=== PATIENT | male | born 1990 ===

== ENCOUNTER 2018-11-20 04:53 | Inpatient (IN) | payer OTHER ==
--- NOTE | 2018-11-20 05:11 | C.PDOC ---
History Of Present Illness As per , pt went to the bathroom and she heard him fall. Found him shaking, unresponsive. Pt does not remember the event. Denies cp, palpitations, f/c/n/v. Ambulating without any difficulty. No incontinence.States that he felt some pain in his leg prior to the event. Has happened before. on 2-3 occasions Time Seen by Provider: 11/20/18 05:10 Chief Complaint (Nursing): Medical Clearance History Per: Family History/Exam Limitations: no limitations Onset/Duration Of Symptoms: Hrs Current Symptoms Are (Timing): Better Severity: Moderate Pain Scale Rating Of: 4 Reports Recently: Treated By A Physician Recent travel outside of the [place]: No Additional History Per: Family Past Medical History Reviewed: Historical Data, Nursing Documentation, Vital Signs Vital Signs: Last Vital Signs Temp 98.3 F 11/20/18 05:03 Pulse 72 11/20/18 05:03 Resp 20 11/20/18 05:03 BP 110/78 11/20/18 05:03 Pulse Ox 99 11/20/18 05:03 Primary Care Provider: Non [facility] Provider, Family History: States: No Known Family Hx - Social History Hx Alcohol Use: Yes Hx Substance Use: No Review Of Systems Constitutional: Negative for: Fever, Chills Eyes: Negative for: Vision Change ENT: Negative for: Throat Pain Cardiovascular: Negative for: Chest Pain Respiratory: Negative for: Shortness of Breath Gastrointestinal: Negative for: Abdominal Pain Genitourinary: Negative for: Dysuria Musculoskeletal: Negative for: Back Pain Skin: Negative for: Rash Neurological: Positive for: Weakness, Dizziness Psych: Negative for: Anxiety Physical Exam - Physical Exam Appears: Non-toxic, No Acute Distress Skin: Warm, Dry Head: Normacephalic Eye(s): bilateral: Normal Inspection, PERRL, EOMI Oral Mucosa: Moist Neck: Supple Chest: Symmetrical Cardiovascular: Rhythm Regular Respiratory: No Rales, No Rhonchi, No Wheezing Gastrointestinal/Abdominal: Soft, No Tenderness, No Distention Back: No CVA Tenderness Extremity: No Tenderness Extremity: Bilateral: Atraumatic, Normal Color And Temperature, Normal ROM Pulses: Left Dorsalis Pedis: Normal, Right Dorsalis Pedis: Normal Neurological/Psych: Oriented x3, Normal Speech, Normal Cognition Gait: Steady ED Course And Treatment - Laboratory Results Result Diagrams: 11/20/18 05:43 11/20/18 05:43 ECG: Interpreted By Me, Viewed By Me ECG Rhythm: Sinus Rhythm (65), 1st Degree HB, Nonspecific Changes O2 Sat by Pulse Oximetry: 99 Pulse Ox Interpretation: Normal - Radiology CXR: Interpreted by Me, Viewed By Me CXR Interpretation: No: Infiltrates, Fracture, Pnemothorax Disposition Counseled Patient/Family Regarding: Studies Performed, Diagnosis - Disposition Disposition Time: 05:11 Condition: FAIR Forms: [email or web address] (Faroese) - Clinical Impression Clinical Impression: Medical assessment, New onset seizure Physician Patient Turnover Patient Signed Over To: Mine Buenrostro Handoff Comments: pending labs, ct re-eval and dispostion
[2018-11-20] MEDS ORDERED: Sodium Chloride 0.9% 1,000 ML IV ONE (05:24)
[2018-11-20 05:49] LABS: BASO % 0.3 % (0.0-2.0); EOS # 0.2 K/uL (0.0-0.7); EOS % 3.2 % (0.0-4.0); HEMOGLOBIN 15.2 g/dL (12.0-18.0); LYMPH # 1.5 K/uL (1.0-4.3); LYMPH % 20.5 % (20.0-40.0); MEAN CELL VOLUME 85.5 fL (80.0-94.0); MEAN CORPUSCULAR HEMOGLOBIN 28.7 pg (27.0-31.0); MEAN CORPUSCULAR HGB CONC 33.6 g/dL (33.0-37.0); MEAN PLATELET VOLUME 8.8 fL (7.2-11.7); MONO # 0.5 K/uL (0.0-0.8); MONO % 7.3 % (0.0-10.0); NEUT % 68.7 % (50.0-75.0); RBC 5.31 Mil/uL (4.40-5.90); RED CELL DISTRIBUTION WIDTH 13.6 % (11.5-14.5); WHITE BLOOD COUNT 7.3 K/uL (4.8-10.8)
[2018-11-20 05:54] LABS: GRANULAR CAST 11 /lpf (0-1); URINE BILIRUBIN NEGATIVE (NEGATIVE); URINE BLOOD NEGATIVE (NEGATIVE); URINE CLARITY Clear (Clear); URINE COLOR Yellow (YELLOW); URINE GLUCOSE (UA) NORMAL (Normal); URINE LEUKOCYTE ESTERASE NEG Leu/uL (Negative); URINE PROTEIN 2+ mg/dL (NEGATIVE); URINE UROBILINOGEN NORMAL mg/dL (0.2-1.0)
[2018-11-20 05:57] LABS: VENOUS BLOOD GAS BASE EXCESS 4.8 mmol/L (0.0-2.0); VENOUS BLOOD GAS PCO2 60 mmHg (40-60); VENOUS BLOOD GAS PO2 21 mm/Hg (30-55); VENOUS BLOOD PH 7.34 (7.32-7.43)
[2018-11-20 06:00] LABS: ALB/GLOB RATIO 1.7 (1.0-2.1); ALBUMIN 4.3 g/dL (3.5-5.0); ALT/SGPT 69 U/L (21-72); AST/SGOT 62 U/L (17-59); BLOOD UREA NITROGEN 13 mg/dL (9-20); CALCIUM 8.7 mg/dl (8.6-10.4); GFR NON-AFRICAN AMERICAN > 60; LIPASE 58 U/L (23-300)
[2018-11-20 06:14] LABS: PARTIAL THROMBOPLASTIN TIME 34.8 SECONDS (21-34); PROTHROMBIN TIME 11.1 SECONDS (9.7-12.2)
--- NOTE | 2018-11-20 07:41 | CT ---
Date of service: 11/20/2018 PROCEDURE: CT HEAD WITHOUT CONTRAST. HISTORY: R/O Bleed, seizure. COMPARISON: None available. TECHNIQUE: Axial computed tomography images were obtained through the head/brain without intravenous contrast. Radiation dose: Total exam DLP = 1178.57 mGy-cm. This CT exam was performed using one or more of the following dose reduction techniques: Automated exposure control, adjustment of the mA and/or kV according to patient size, and/or use of iterative reconstruction technique. FINDINGS: HEMORRHAGE: No intracranial hemorrhage. BRAIN: No mass effect or edema. No atrophy or chronic microvascular ischemic changes. VENTRICLES: Unremarkable. No hydrocephalus. CALVARIUM: Unremarkable. PARANASAL SINUSES: Mild mucosal thickening of the bilateral maxillary sinuses. Mild mucosal thickening of the sphenoid sinus and ethmoid air cells. MASTOID AIR CELLS: Unremarkable as visualized. No inflammatory changes. OTHER FINDINGS: None. IMPRESSION: No acute intracranial abnormality. Sinus mucosal disease as above. If symptoms persists, consider correlation with MRI. A preliminary report was generated at 7:21 a.m. on 11/20/[address] Mary Anne Akins from [employer].
--- NOTE | 2018-11-20 08:31 | CP.PCM.CON ---
History of Present Illness - History of Present Illness History of Present Illness: Resident Consult Note for Dr. Crockett Patient is a 28 year old male with past medical history of obesity PMH: obesity PSH: SHx: FHx: Allergies: NKDA PMD: Past Patient History - Past Social History Smoking Status: Never Smoked - PSYCHIATRIC Hx Substance Use: No Meds Allergies/Adverse Reactions: Allergies Allergy/AdvReac Type Severity Reaction Status Date / Time No Known Allergies Allergy Verified 11/20/18 05:03 Results - Vital Signs Recent Vital Signs: Last Vital Signs Temp 98 F 11/20/18 07:32 Pulse 75 11/20/18 07:32 Resp 18 11/20/18 07:32 BP 115/74 11/20/18 07:32 Pulse Ox 99 11/20/18 07:32 - Labs Result Diagrams: 11/20/18 05:43 11/20/18 05:43 Labs: Laboratory Results - last 24 hr 11/20/18 11/20/18 11/20/18 05:43 05:43 05:43 WBC 7.3 RBC 5.31 Hgb 15.2 Hct 45.4 MCV 85.5 MCH 28.7 MCHC 33.6 RDW 13.6 Plt Count 236 MPV 8.8 Neut % (Auto) 68.7 Lymph % (Auto) 20.5 [place] % (Auto) 7.3 Eos % (Auto) 3.2 Baso % (Auto) 0.3 Neut # (Auto) 5.0 Lymph # (Auto) 1.5 [place] # (Auto) 0.5 Eos # (Auto) 0.2 Baso # (Auto) 0.0 PT 11.1 INR 1.0 APTT 34.8 H pO2 VBG pH VBG pCO2 VBG HCO3 VBG Total CO2 VBG O2 Sat (Calc) VBG Base Excess VBG Potassium Glucose Lactate Sodium Potassium Chloride Carbon Dioxide Anion Gap BUN Creatinine Est GFR ( Amer) Est GFR (Non-Af Amer) POC Glucose (mg/dL) Random Glucose Calcium Total Bilirubin AST ALT Alkaline Phosphatase Total Protein Albumin Globulin Albumin/Globulin Ratio Lipase Venous Blood Potassium Urine Color Yellow Urine Clarity Clear Urine pH 6.0 Ur Specific [place] 1.021 Urine Protein 2+ H Urine Glucose (UA) Normal Urine Ketones Negative Urine Blood Negative Urine Nitrate Negative Urine Bilirubin Negative Urine Urobilinogen Normal Ur Leukocyte Esterase Neg Urine WBC (Auto) 1 Urine RBC (Auto) 1 Granular Casts (Auto) 11 11/20/18 11/20/18 11/20/18 05:43 05:45 07:12 WBC RBC Hgb Hct MCV MCH MCHC RDW Plt Count MPV Neut % (Auto) Lymph % (Auto) [place] % (Auto) Eos % (Auto) Baso % (Auto) Neut # (Auto) Lymph # (Auto) [place] # (Auto) Eos # (Auto) Baso # (Auto) PT INR APTT pO2 21 L VBG pH 7.34 VBG pCO2 60 VBG HCO3 26.9 VBG Total CO2 34.2 H VBG O2 Sat (Calc) 40.7 VBG Base Excess 4.8 H VBG Potassium 4.3 Glucose 112 H Lactate 1.1 Sodium 140 138.0 Potassium 4.5 Chloride 102 104.0 Carbon Dioxide 29 Anion Gap 13 BUN 13 Creatinine 0.8 Est GFR ( Amer) > 60 Est GFR (Non-Af Amer) > 60 POC Glucose (mg/dL) 111 H Random Glucose 112 H Calcium 8.7 Total Bilirubin 1.0 AST 62 H ALT 69 Alkaline Phosphatase 76 Total Protein 6.9 Albumin 4.3 Globulin 2.6 Albumin/Globulin Ratio 1.7 Lipase 58 Venous Blood Potassium 4.3 Urine Color Urine Clarity Urine pH Ur Specific [place] Urine Protein Urine Glucose (UA) Urine Ketones Urine Blood Urine Nitrate Urine Bilirubin Urine Urobilinogen Ur Leukocyte Esterase Urine WBC (Auto) Urine RBC (Auto) Granular Casts (Auto)
--- NOTE | 2018-11-20 09:02 | CP.PCM.HP ---
History of Present Illness - History of Present Illness History of Present Illness: Resident Consult Note for Dr. Crockett Patient is a 28 year old male with past medical history of obesity presenting with new onset seizure which occurred this morning. Patient states he was getting ready for work when he began to feel an abnormal sensation in his right lower extremity, described as a feeling of his leg being inflated. Subsequently he lost consciousness for approximately three minutes and exhibited tonic clonic movements, eyes rolling back, and drooling. Patient had a similar episode one month prior which involved the same leg sensation however he did not lose consciousness at that time. After that episode he went to his PMD, and was found to have H.Pylori and was prescribed triple therapy. Patient finished his triple therapy a week ago. Patient admits to having symptoms of the common cold yesterday. Admits to headache and mild nausea. Denies dizziness, hearing or vision changes, fevers, chills, chest pain, shortness of breath, abdominal pain, urinary or bowel incontinence, diarrhea, dysuria. 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 FHx: father (hypertension) Allergies: NKDA Present on Admission - Present on Admission Any Indicators Present on Admission: No Review of Systems - Review of Systems All systems: reviewed and no additional remarkable complaints except (as stated in HPI) Past Patient History - Past Social History Smoking Status: Never Smoked - PSYCHIATRIC Hx Substance Use: No Meds Allergies/Adverse Reactions: Allergies Allergy/AdvReac Type Severity Reaction Status Date / Time No Known Allergies Allergy Verified 11/20/18 05:03 Physical Exam - Constitutional Appears: Non-toxic, No Acute Distress - Head Exam Head Exam: ATRAUMATIC, NORMOCEPHALIC - Eye Exam Eye Exam: EOMI, Normal appearance, PERRL - ENT Exam ENT Exam: Mucous Membranes Moist - Neck Exam Neck exam: Positive for: Normal Inspection - Respiratory Exam Respiratory Exam: Clear to Auscultation Bilateral, NORMAL BREATHING PATTERN. absent: Accessory Muscle Use, Rales, Rhonchi, Wheezes, Respiratory Distress - Cardiovascular Exam Cardiovascular Exam: REGULAR RHYTHM, +S1, +S2. absent: Tachycardia, Systolic Murmur - GI/Abdominal Exam GI & Abdominal Exam: Normal Bowel Sounds, Soft. absent: Distended, Firm, Gu arding, Rebound, Tenderness - Extremities Exam Extremities exam: Positive for: normal inspection - Neurological Exam Neurological exam: Alert, CN II-XII Intact, Oriented x3, Reflexes Normal Additional comments: Muscle strength +5/5 bilaterally - Psychiatric Exam Psychiatric exam: Normal Affect, Normal Mood - Skin Skin Exam: Dry, Intact, Normal Color, Warm Results - Vital Signs Recent Vital Signs: Last Vital Signs Temp 98 F 11/20/18 07:32 Pulse 75 11/20/18 07:32 Resp 18 11/20/18 08:41 BP 115/74 11/20/18 07:32 Pulse Ox 99 11/20/18 07:32 - Labs Result Diagrams: 11/20/18 05:43 11/20/18 05:43 Labs: Laboratory Results - last 24 hr 11/20/18 11/20/18 11/20/18 05:43 05:43 05:43 WBC 7.3 RBC 5.31 Hgb 15.2 Hct 45.4 MCV 85.5 MCH 28.7 MCHC 33.6 RDW 13.6 Plt Count 236 MPV 8.8 Neut % (Auto) 68.7 Lymph % (Auto) 20.5 [place] % (Auto) 7.3 Eos % (Auto) 3.2 Baso % (Auto) 0.3 Neut # (Auto) 5.0 Lymph # (Auto) 1.5 [place] # (Auto) 0.5 Eos # (Auto) 0.2 Baso # (Auto) 0.0 PT 11.1 INR 1.0 APTT 34.8 H pO2 VBG pH VBG pCO2 VBG HCO3 VBG Total CO2 VBG O2 Sat (Calc) VBG Base Excess VBG Potassium Glucose Lactate Sodium Potassium Chloride Carbon Dioxide Anion Gap BUN Creatinine Est GFR ( Amer) Est GFR (Non-Af Amer) POC Glucose (mg/dL) Random Glucose Calcium Total Bilirubin AST ALT Alkaline Phosphatase Total Protein Albumin Globulin Albumin/Globulin Ratio Lipase Venous Blood Potassium Urine Color Yellow Urine Clarity Clear Urine pH 6.0 Ur Specific [place] 1.021 Urine Protein 2+ H Urine Glucose (UA) Normal Urine Ketones Negative Urine Blood Negative Urine Nitrate Negative Urine Bilirubin Negative Urine Urobilinogen Normal Ur Leukocyte Esterase Neg Urine WBC (Auto) 1 Urine RBC (Auto) 1 Granular Casts (Auto) 11 11/20/18 11/20/18 11/20/18 05:43 05:45 07:12 WBC RBC Hgb Hct MCV MCH MCHC RDW Plt Count MPV Neut % (Auto) Lymph % (Auto) [place] % (Auto) Eos % (Auto) Baso % (Auto) Neut # (Auto) Lymph # (Auto) [place] # (Auto) Eos # (Auto) Baso # (Auto) PT INR APTT pO2 21 L VBG pH 7.34 VBG pCO2 60 VBG HCO3 26.9 VBG Total CO2 34.2 H VBG O2 Sat (Calc) 40.7 VBG Base Excess 4.8 H VBG Potassium 4.3 Glucose 112 H Lactate 1.1 Sodium 140 138.0 Potassium 4.5 Chloride 102 104.0 Carbon Dioxide 29 Anion Gap 13 BUN 13 Creatinine 0.8 Est GFR ( Amer) > 60 Est GFR (Non-Af Amer) > 60 POC Glucose (mg/dL) 111 H Random Glucose 112 H Calcium 8.7 Total Bilirubin 1.0 AST 62 H ALT 69 Alkaline Phosphatase 76 Total Protein 6.9 Albumin 4.3 Globulin 2.6 Albumin/Globulin Ratio 1.7 Lipase 58 Venous Blood Potassium 4.3 Urine Color Urine Clarity Urine pH Ur Specific [place] Urine Protein Urine Glucose (UA) Urine Ketones Urine Blood Urine Nitrate Urine Bilirubin Urine Urobilinogen Ur Leukocyte Esterase Urine WBC (Auto) Urine RBC (Auto) Granular Casts (Auto) Assessment & Plan - Assessment and Plan (Free Text) Assessment: kavon is a 28 year old male with past medical history of obesity presenting with new onset seizure. Plan: Seizure - CT head shows sinus mucosal disease, no acute intracranial abnormality - EKG shows NSR - CXR and Urinalysis unremarkable - Zofran PRN - Motrin PRN - UDS, alcohol level - HIV - VEEG - Keppra 500 mg BID - Neurology consulted, appreciate recs PPX - SCDs Case reviewed with Dr. Bon Santana PGY-1 - Date & Time Date: 11/20/18 Time: 09:07
--- NOTE | 2018-11-20 09:31 | RAD ---
Date of service: 11/20/2018 HISTORY: Shortness of breath COMPARISON: None available TECHNIQUE: 1 view obtained. FINDINGS: LUNGS: No active pulmonary disease. PLEURA: No significant pleural effusion identified, no pneumothorax apparent. CARDIOVASCULAR: No aortic atherosclerotic calcification present. Normal cardiac size. No pulmonary vascular congestion. OSSEOUS STRUCTURES: No significant abnormalities. VISUALIZED UPPER ABDOMEN: Normal. OTHER FINDINGS: None. IMPRESSION: No active disease.
[2018-11-20] MEDS: levETIRAcetam 500 MG in Sodium Chloride 0.9% 100 ML IVPB SCH ×3 (11:06→21:13)
--- NOTE | 2018-11-20 15:09 | CP.PCM.CON ---
History of Present Illness - History of Present Illness History of Present Illness: Neurology consult dictated. Patient with new onset epilepsy that may be complex partial epilepsy, localization related, or non epilpetic. PLan; 1. VEEG for 24 hours 2. MRI Brain with and without timbo 3. NO aeds at this time. Dr. Almanza Neurology Past Patient History - Past Medical History & Family History Past Medical History?: No - Past Social History Smoking Status: Never Smoked - CARDIAC Hx Cardiac Disorders: No - PULMONARY Hx Respiratory Disorders: No - NEUROLOGICAL Hx Neurological Disorder: No - HEENT Hx HEENT Problems: No - RENAL Hx Chronic Kidney Disease: No - ENDOCRINE/METABOLIC Hx Endocrine Disorders: No - HEMATOLOGICAL/ONCOLOGICAL Hx Blood Disorders: No - INTEGUMENTARY Hx Dermatological Problems: No - MUSCULOSKELETAL/RHEUMATOLOGICAL Hx Musculoskeletal Disorders: No Hx Falls: Yes - GASTROINTESTINAL Hx Gastrointestinal Disorders: No - GENITOURINARY/GYNECOLOGICAL Hx Genitourinary Disorders: No - PSYCHIATRIC Hx Substance Use: No - SURGICAL HISTORY Hx Surgeries: No - ANESTHESIA Hx Anesthesia: No Meds Allergies/Adverse Reactions: Allergies Allergy/AdvReac Type Severity Reaction Status Date / Time No Known Allergies Allergy Verified 11/20/18 05:03 - Medications Medications: Current Medications Levetiracetam 500 mg/ Sodium (Chloride) 105 mls @ 420 mls/hr IVPB Q12 MAURICE Last Admin: 11/20/18 11:06 Dose: 420 mls/hr Ibuprofen (Motrin Tab) 600 mg PO TID PRN PRN Reason: Pain, moderate (4-7) Ondansetron HCl (Zofran Inj) 4 mg IVP Q6H PRN PRN Reason: Nausea/Vomiting Results - Vital Signs Recent Vital Signs: Last Vital Signs Temp 98.0 F 11/20/18 09:32 Pulse 66 11/20/18 09:32 Resp 20 11/20/18 09:32 BP 130/75 11/20/18 09:32 Pulse Ox 99 11/20/18 09:32 - Labs Result Diagrams: 11/20/18 05:43 11/20/18 05:43 Labs: Laboratory Results - last 24 hr 11/20/18 11/20/18 11/20/18 05:43 05:43 05:43 WBC 7.3 RBC 5.31 Hgb 15.2 Hct 45.4 MCV 85.5 MCH 28.7 MCHC 33.6 RDW 13.6 Plt Count 236 MPV 8.8 Neut % (Auto) 68.7 Lymph % (Auto) 20.5 [place] % (Auto) 7.3 Eos % (Auto) 3.2 Baso % (Auto) 0.3 Neut # (Auto) 5.0 Lymph # (Auto) 1.5 [place] # (Auto) 0.5 Eos # (Auto) 0.2 Baso # (Auto) 0.0 PT 11.1 INR 1.0 APTT 34.8 H pO2 VBG pH VBG pCO2 VBG HCO3 VBG Total CO2 VBG O2 Sat (Calc) VBG Base Excess VBG Potassium Glucose Lactate Sodium Potassium Chloride Carbon Dioxide Anion Gap BUN Creatinine Est GFR ( Amer) Est GFR (Non-Af Amer) POC Glucose (mg/dL) Random Glucose Calcium Magnesium Total Bilirubin AST ALT Alkaline Phosphatase Total Creatine Kinase Total Protein Albumin Globulin Albumin/Globulin Ratio Lipase Venous Blood Potassium Urine Color Yellow Urine Clarity Clear Urine pH 6.0 Ur Specific [place] 1.021 Urine Protein 2+ H Urine Glucose (UA) Normal Urine Ketones Negative Urine Blood Negative Urine Nitrate Negative Urine Bilirubin Negative Urine Urobilinogen Normal Ur Leukocyte Esterase Neg Urine WBC (Auto) 1 Urine RBC (Auto) 1 Granular Casts (Auto) 11 Alcohol, Quantitative 11/20/18 11/20/18 11/20/18 05:43 05:45 07:12 WBC RBC Hgb Hct MCV MCH MCHC RDW Plt Count MPV Neut % (Auto) Lymph % (Auto) [place] % (Auto) Eos % (Auto) Baso % (Auto) Neut # (Auto) Lymph # (Auto) [place] # (Auto) Eos # (Auto) Baso # (Auto) PT INR APTT pO2 21 L VBG pH 7.34 VBG pCO2 60 VBG HCO3 26.9 VBG Total CO2 34.2 H VBG O2 Sat (Calc) 40.7 VBG Base Excess 4.8 H VBG Potassium 4.3 Glucose 112 H Lactate 1.1 Sodium 140 138.0 Potassium 4.5 Chloride 102 104.0 Carbon Dioxide 29 Anion Gap 13 BUN 13 Creatinine 0.8 Est GFR ( Amer) > 60 Est GFR (Non-Af Amer) > 60 POC Glucose (mg/dL) 111 H Random Glucose 112 H Calcium 8.7 Magnesium Total Bilirubin 1.0 AST 62 H ALT 69 Alkaline Phosphatase 76 Total Creatine Kinase Total Protein 6.9 Albumin 4.3 Globulin 2.6 Albumin/Globulin Ratio 1.7 Lipase 58 Venous Blood Potassium 4.3 Urine Color Urine Clarity Urine pH Ur Specific [place] Urine Protein Urine Glucose (UA) Urine Ketones Urine Blood Urine Nitrate Urine Bilirubin Urine Urobilinogen Ur Leukocyte Esterase Urine WBC (Auto) Urine RBC (Auto) Granular Casts (Auto) Alcohol, Quantitative 11/20/18 11:37 WBC RBC Hgb Hct MCV MCH MCHC RDW Plt Count MPV Neut % (Auto) Lymph % (Auto) [place] % (Auto) Eos % (Auto) Baso % (Auto) Neut # (Auto) Lymph # (Auto) [place] # (Auto) Eos # (Auto) Baso # (Auto) PT INR APTT pO2 VBG pH VBG pCO2 VBG HCO3 VBG Total CO2 VBG O2 Sat (Calc) VBG Base Excess VBG Potassium Glucose Lactate Sodium Potassium Chloride Carbon Dioxide Anion Gap BUN Creatinine Est GFR ( Amer) Est GFR (Non-Af Amer) POC Glucose (mg/dL) Random Glucose Calcium Magnesium 2.0 Total Bilirubin AST ALT Alkaline Phosphatase Total Creatine Kinase 325 H Total Protein Albumin Globulin Albumin/Globulin Ratio Lipase Venous Blood Potassium Urine Color Urine Clarity Urine pH Ur Specific [place] Urine Protein Urine Glucose (UA) Urine Ketones Urine Blood Urine Nitrate Urine Bilirubin Urine Urobilinogen Ur Leukocyte Esterase Urine WBC (Auto) Urine RBC (Auto) Granular Casts (Auto) Alcohol, Quantitative < 10
[2018-11-20] MEDS ORDERED: Gadodiamide 287 mg/ml 20 ml IV ONE (16:00)
--- NOTE | 2018-11-20 20:18 | CON ---
DATE: 11/20/2018 NEUROLOGY CONSULTATION Neurology consult called by Dr. Crockett. HISTORY OF PRESENT ILLNESS: Mr. Nikhil Craig is a 28-year-old male who has no family history of epilepsy, who presented this morning with a seizure, generalized tonic-clonic seizure that started with like heaviness, numbness, and weakness bilaterally both legs followed by three minutes approximate tonic-clonic movements with eyes rolling backwards, eyes open, drooling, no urinary incontinence was noted . This was witnessed by his . The patient states he had a similar episode one month prior with leg sensation without losing consciousness. He went to the PMD. At that point, he was found to have H. pylori and prescribed triple therapy. One week ago, the patient finished his triple therapy. There is no prior history of generalized tonic-clonic seizures. No auras. REVIEW OF SYSTEMS: Today is significant for headache, mild nausea, fatigue, and malaise. PAST MEDICAL HISTORY: Obesity. PAST SURGICAL HISTORY: None. FAMILY HISTORY: Father, hypertension. 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 He is , no children. ALLERGIES: NO KNOWN DRUG ALLERGIES. PHYSICAL EXAMINATION: GENERAL: The patient is alert, awake, and oriented x3. HEENT: Pupils equal, round, reactive to light. Cranial nerves II through XII normal. EOMI. Visual guzman are full. Motor, tone, strength 5/5. Sensory intact to fine touch, pain, position, vibration sense. Cerebellar: Cranial nerves, there is no dysmetria. Gait is normal. There is no ataxia. LABORATORY DATA: Labs drawn, the CBC is normal. Chemistry is normal except for a POC glucose of 111. AST and ALT are 62 and 59. Urine is only 2+ protein. Toxicology is negative. CT of the head was done, which shows the following: Sinus mucosal disease with no other abnormalities. IMPRESSION: This is a 28-year-old male with new onset of seizure, differential includes complex partial epilepsy/localization-related epilepsy . The peculiar prodrome of bilateral leg numbness maybe indicative of a somatosensory parietal lobe seizure for it could be psychosomatic. PLAN: 1. MRI of the brain with or without contrast. 2. Video EEG 24 hours. 3. Would not recommend any antiepileptics at this time, so that we may delineate the type of epilepsy he has or pseudoepilepsy. Thank you for this consult. Heena Almanza MD
[2018-11-20 20:31] LABS: BARBITURATES, UR NEGATIVE (NEGATIVE); BENZODIAZEPINES, UR NEGATIVE (NEGATIVE); OPIATES, UR NEGATIVE (NEGATIVE); PHENCYCLIDINE, UR NEGATIVE (NEGATIVE)
--- NOTE | 2018-11-21 07:37 | CP.PCM.PN ---
Subjective - Date & Time of Evaluation Date of Evaluation: 11/21/18 Time of Evaluation: 07:36 - Subjective Subjective: Resident Progress Note for Dr. Crockett No acute events overnight. VEEG started yesterday. Objective - Vital Signs/Intake and Output Vital Signs (last 24 hours): Temp Pulse Resp BP Pulse Ox 97.6 F 65 20 107/63 98 11/20/18 23:00 11/21/18 04:51 11/20/18 23:00 11/20/18 23:00 11/20/18 23:00 - Medications Medications: Current Medications Levetiracetam 500 mg/ Sodium (Chloride) 105 mls @ 420 mls/hr IVPB Q12 MAURICE Last Admin: 11/20/18 21:13 Dose: 420 mls/hr Ibuprofen (Motrin Tab) 600 mg PO TID PRN PRN Reason: Pain, moderate (4-7) Ondansetron HCl (Zofran Inj) 4 mg IVP Q6H PRN PRN Reason: Nausea/Vomiting - Labs Labs: 11/20/18 05:43 11/20/18 05:43 PT 11.1 SECONDS (9.7-12.2) 11/20/18 05:43 INR 1.0 11/20/18 05:43 APTT 34.8 SECONDS (21-34) H 11/20/18 05:43 - Constitutional Appears: Non-toxic, No Acute Distress - Head Exam Head Exam: ATRAUMATIC, NORMOCEPHALIC - Eye Exam Eye Exam: EOMI, Normal appearance, PERRL - ENT Exam ENT Exam: Mucous Membranes Moist - Neck Exam Neck exam: Positive for: Normal Inspection - Respiratory Exam Respiratory Exam: Clear to Auscultation Bilateral, NORMAL BREATHING PATTERN. absent: Accessory Muscle Use, Rales, Rhonchi, Wheezes, Respiratory Distress - Cardiovascular Exam Cardiovascular Exam: REGULAR RHYTHM, +S1, +S2. absent: Tachycardia, Systolic Murmur - GI/Abdominal Exam GI & Abdominal Exam: Normal Bowel Sounds, Soft. absent: Distended, Firm, Guarding, Rebound, Tenderness - Extremities Exam Extremities exam: Positive for: normal inspection - Neurological Exam Neurological exam: Alert, CN II-XII Intact, Oriented x3, Reflexes Normal Additional comments: Muscle strength +5/5 bilaterally - Psychiatric Exam Psychiatric exam: Normal Affect, Normal Mood - Skin Skin Exam: Dry, Intact, Normal Color, Warm Assessment and Plan - Assessment and Plan (Free Text) Assessment: Patient is a 28 year old male with past medical history of obesity presenting with new onset seizure. Plan: Seizure - CT head shows sinus mucosal disease, no acute intracranial abnormality - EKG shows NSR - CXR and Urinalysis unremarkable - UDS, alcohol level, HIV negative - Zofran PRN - Motrin PRN - followup VEEG - followup MRI - Keppra 500 mg BID - Neurology consulted, recs appreciated PPX - SCDs
[2018-11-21 08:32] LABS: BASO % 0.3 % (0.0-2.0); EOS # 0.3 K/uL (0.0-0.7); EOS % 3.9 % (0.0-4.0); HEMOGLOBIN 15.6 g/dL (12.0-18.0); LYMPH # 1.8 K/uL (1.0-4.3); LYMPH % 27.8 % (20.0-40.0); MEAN CELL VOLUME 84.9 fL (80.0-94.0); MEAN CORPUSCULAR HEMOGLOBIN 29.1 pg (27.0-31.0); MEAN CORPUSCULAR HGB CONC 34.3 g/dL (33.0-37.0); MEAN PLATELET VOLUME 9.1 fL (7.2-11.7); MONO # 0.5 K/uL (0.0-0.8); NEUT # 3.9 K/uL (1.8-7.0); RBC 5.38 Mil/uL (4.40-5.90); RED CELL DISTRIBUTION WIDTH 13.5 % (11.5-14.5); WHITE BLOOD COUNT 6.5 K/uL (4.8-10.8)
[2018-11-21 08:33] LABS: BLOOD UREA NITROGEN 10 mg/dL (9-20); CALCIUM 9.5 mg/dl (8.6-10.4); GFR NON-AFRICAN AMERICAN > 60
--- NOTE | 2018-11-21 09:39 | MRI ---
Date of service: 11/20/2018 PROCEDURE: MRI BRAIN WITH AND WITHOUT CONTRAST HISTORY: seizure COMPARISON: None available. TECHNIQUE: Multiplanar, multisequence MR images of the brain were obtained with and without intravenous contrast enhancement. 20 cc of Omniscan FINDINGS: HEMORRHAGE: None DWI: No evidence of an acute or early subacute infarction. BRAIN PARENCHYMA: No mass,mass effect or edema. No atrophy or chronic microvascular ischemic changes. ENHANCEMENT: No abnormal intracranial enhancement. VENTRICLES: Unremarkable. No hydrocephalus. CRANIUM: Unremarkable. ORBITS: Grossly unremarkable. PARANASAL SINUSES/MASTOIDS: Mild mucosal thickening throughout the sinuses. VASCULAR SYSTEM: Skull base flow voids intact. OTHER FINDINGS: The report concurs with the preliminary [facility] report. IMPRESSION: No acute intracranial findings.
[2018-11-21] MEDS: levETIRAcetam 500 MG in Sodium Chloride 0.9% 100 ML IVPB SCH (10:04)
--- NOTE | 2018-11-21 15:20 | CP.PCM.PN ---
Subjective - Date & Time of Evaluation Date of Evaluation: 11/21/18 Time of Evaluation: 14:00 - Subjective Subjective: Progress note: Patient has a normal VEEG, and no clinical seizures. 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 Clinically he is stable for discharge. On exam: AAOX3. Cn 2-12 normal. EOMI. motor/sensory: normal. +2 dtr ul and ll bl. Toes downgoing. No clonus. gait normal. Objective - Vital Signs/Intake and Output Vital Signs (last 24 hours): Temp Pulse Resp BP Pulse Ox 97.6 F 85 20 108/66 99 11/21/18 07:05 11/21/18 12:20 11/21/18 07:05 11/21/18 07:05 11/21/18 07:05 - Medications Medications: Current Medications Levetiracetam 500 mg/ Sodium (Chloride) 105 mls @ 420 mls/hr IVPB Q12 MAURICE Last Admin: 11/21/18 10:04 Dose: 420 mls/hr Ibuprofen (Motrin Tab) 600 mg PO TID PRN PRN Reason: Pain, moderate (4-7) Ondansetron HCl (Zofran Inj) 4 mg IVP Q6H PRN PRN Reason: Nausea/Vomiting - Labs Labs: 11/21/18 08:20 11/21/18 08:05 PT 11.1 SECONDS (9.7-12.2) 11/20/18 05:43 INR 1.0 11/20/18 05:43 APTT 34.8 SECONDS (21-34) H 11/20/18 05:43 Assessment and Plan - Assessment and Plan (Free Text) Assessment: A/p: 28 yr old male with new onset seizures who is now seizure free and interictal discharge free on the VEEG. I will send him home on Keppra and monitor. I will also advise that patient not to drive for 3 months. Plan : 1.Continue on Keppra 500 mg bid 2. Follow up with me outpatient basis. Dr. mcqueen Neurology
[2018-11-21 16:04] VITALS: BP 116/72; PULSE 64; RESP 18; TEMP 98.1; O2SAT 98
--- NOTE | 2018-11-21 19:22 | CP.PCM.DIS ---
Provider - Provider Date of Admission: 11/20/18 08:01 Attending physician: Adis Crockett Jr, MD Consults: 11/20/18 08:15 Case Management Referral ONCE Comment: Physician Instructions: Reason For Exam: Reason for Referral: Discharge Planning 11/20/18 09:21 Neurology Consult Routine Comment: Consulting Provider: Heena Almanza Consulting Physician: Heena Almanza Reason for Consult: new onset seizure Time Spent in preparation of Discharge (in minutes): 35 Diagnosis - Discharge Diagnosis (1) New onset seizure Status: Resolved Hospital Course - Lab Results Lab Results: Most Recent Lab Values WBC 6.5 K/uL (4.8-10.8) 11/21/18 08:20 RBC 5.38 Mil/uL (4.40-5.90) 11/21/18 08:20 Hgb 15.6 g/dL (12.0-18.0) 11/21/18 08:20 Hct 45.6 % (35.0-51.0) 11/21/18 08:20 MCV 84.9 fL (80.0-94.0) 11/21/18 08:20 MCH 29.1 pg (27.0-31.0) 11/21/18 08:20 MCHC 34.3 g/dL (33.0-37.0) 11/21/18 08:20 RDW 13.5 % (11.5-14.5) 11/21/18 08:20 Plt Count 258 K/uL (130-400) 11/21/18 08:20 MPV 9.1 fL (7.2-11.7) 11/21/18 08:20 Neut % (Auto) 60.0 % (50.0-75.0) 11/21/18 08:20 Lymph % (Auto) 27.8 % (20.0-40.0) 11/21/18 08:20 [place] % (Auto) 8.0 % (0.0-10.0) 11/21/18 08:20 Eos % (Auto) 3.9 % (0.0-4.0) 11/21/18 08:20 Baso % (Auto) 0.3 % (0.0-2.0) 11/21/18 08:20 Neut # (Auto) 3.9 K/uL (1.8-7.0) 11/21/18 08:20 Lymph # (Auto) 1.8 K/uL (1.0-4.3) 11/21/18 08:20 [place] # (Auto) 0.5 K/uL (0.0-0.8) 11/21/18 08:20 Eos # (Auto) 0.3 K/uL (0.0-0.7) 11/21/18 08:20 Baso # (Auto) 0.0 K/uL (0.0-0.2) 11/21/18 08:20 PT 11.1 SECONDS (9.7-12.2) 11/20/18 05:43 INR 1.0 11/20/18 05:43 APTT 34.8 SECONDS (21-34) H 11/20/18 05:43 pO2 21 mm/Hg (30-55) L 11/20/18 05:45 VBG pH 7.34 (7.32-7.43) 11/20/18 05:45 VBG pCO2 60 mmHg (40-60) 11/20/18 05:45 VBG HCO3 26.9 mmol/L 11/20/18 05:45 VBG Total CO2 34.2 mmol/L (22-28) H 11/20/18 05:45 VBG O2 Sat (Calc) 40.7 % (40-65) 11/20/18 05:45 VBG Base Excess 4.8 mmol/L (0.0-2.0) H 11/20/18 05:45 VBG Potassium 4.3 mmol/L (3.6-5.2) 11/20/18 05:45 Sodium 138.0 mmol/l (132-148) 11/20/18 05:45 Chloride 104.0 mmol/L (98-107) 11/20/18 05:45 Glucose 112 mg/dl (75-110) H 11/20/18 05:45 Lactate 1.1 mmol/L (0.7-2.1) 11/20/18 05:45 Sodium 137 mmol/L (132-148) 11/21/18 08:05 Potassium 4.7 mmol/L (3.6-5.2) 11/21/18 08:05 Chloride 101 mmol/L (98-107) 11/21/18 08:05 Carbon Dioxide 29 mmol/L (22-30) 11/21/18 08:05 Anion Gap 12 (10-20) 11/21/18 08:05 BUN 10 mg/dL (9-20) 11/21/18 08:05 Creatinine 0.7 mg/dL (0.8-1.5) L 11/21/18 08:05 Est GFR ( Amer) > 60 11/21/18 08:05 Est GFR (Non-Af Amer) > 60 11/21/18 08:05 POC Glucose (mg/dL) 111 mg/dL (65-110) H 11/20/18 07:12 Random Glucose 95 mg/dL (75-110) 11/21/18 08:05 Calcium 9.5 mg/dl (8.6-10.4) 11/21/18 08:05 Magnesium 2.0 mg/dL (1.6-2.3) 11/20/18 11:37 Total Bilirubin 1.0 mg/dL (0.2-1.3) 11/20/18 05:43 AST 62 U/L (17-59) H 11/20/18 05:43 ALT 69 U/L (21-72) 11/20/18 05:43 Alkaline Phosphatase 76 U/L (38-126) 11/20/18 05:43 Total Creatine Kinase 325 U/L (55-170) H 11/20/18 11:37 Total Protein 6.9 g/dL (6.3-8.3) 11/20/18 05:43 Albumin 4.3 g/dL (3.5-5.0) 11/20/18 05:43 Globulin 2.6 gm/dL (2.2-3.9) 11/20/18 05:43 Albumin/Globulin Ratio 1.7 (1.0-2.1) 11/20/18 05:43 Lipase 58 U/L (23-300) 11/20/18 05:43 Venous Blood Potassium 4.3 mmol/L (3.6-5.2) 11/20/18 05:45 Urine Color Yellow (YELLOW) 11/20/18 05:43 Urine Clarity Clear (Clear) 11/20/18 05:43 Urine pH 6.0 (5.0-8.0) 11/20/18 05:43 Ur Specific [place] 1.021 (1.003-1.030) 11/20/18 05:43 Urine Protein 2+ mg/dL (NEGATIVE) H 11/20/18 05:43 Urine Glucose (UA) Normal mg/dL (Normal) 11/20/18 05:43 Urine Ketones Negative mg/dL (NEGATIVE) 11/20/18 05:43 Urine Blood Negative (NEGATIVE) 11/20/18 05:43 Urine Nitrate Negative (NEGATIVE) 11/20/18 05:43 Urine Bilirubin Negative (NEGATIVE) 11/20/18 05:43 Urine Urobilinogen Normal mg/dL (0.2-1.0) 11/20/18 05:43 Ur Leukocyte Esterase Neg Sana/uL (Negative) 11/20/18 05:43 Urine WBC (Auto) 1 /hpf (0-5) 11/20/18 05:43 Urine RBC (Auto) 1 /hpf (0-3) 11/20/18 05:43 Granular Casts (Auto) 11 /lpf (0-1) 11/20/18 05:43 Urine Opiates Screen Negative (NEGATIVE) 11/20/18 20:08 Urine Methadone Screen Negative (NEGATIVE) 11/20/18 20:08 Ur Barbiturates Screen Negative (NEGATIVE) 11/20/18 20:08 Ur Phencyclidine Scrn Negative (NEGATIVE) 11/20/18 20:08 Ur Amphetamines Screen Negative (NEGATIVE) 11/20/18 20:08 U Benzodiazepines Scrn Negative (NEGATIVE) 11/20/18 20:08 U Oth Cocaine Metabols Negative (NEGATIVE) 11/20/18 20:08 U Cannabinoids Screen Negative (NEGATIVE) 11/20/18 20:08 Alcohol, Quantitative < 10 mg/dl (0-10) 11/20/18 11:37 HIV 1&2 Ag/Ab, 4th Gen Nonreactive (Nonreactive) 11/20/18 11:37 - Hospital Course Hospital Course: On admission: Patient is a 28 year old male with past medical history of obesity presenting with new onset seizure which occurred this morning. Patient states he was getting ready for work when he began to feel an abnormal sensation in his right lower extremity, described as a feeling of his leg being inflated. Subsequently he lost consciousness for approximately three minutes and exhibited tonic clonic movements, eyes rolling back, and drooling. Patient had a similar episode one month prior which involved the same leg sensation however he did not lose consciousness at that time. After that episode he went to his PMD, and was found to have H.Pylori and was prescribed triple therapy. Patient finished his triple therapy a week ago. Patient admits to having symptoms of the common cold yesterday. Admits to headache and mild nausea. Denies dizziness, hearing or vision changes, fevers, chills, chest pain, shortness of breath, abdominal pain, urinary or bowel incontinence, diarrhea, dysuria. During hospital stay: Neurology was consulted. CT head w/o contrast was done which was negative for acute intracranial pathology. Patient was started on Keppra and VEEG recording was started. MRI brain with and without contrast was done which was negative for acute pathology. Patient did not have any seizures during hospital admission. Patient was cleared from neurology standpoint to be discharged with prescription for Keppra. Patient was instructed to avoid driving for at least three weeks. Please see EMR for full details. Discharge Exam - Additional Findings Additional findings: - Constitutional Appears: Non-toxic, No Acute Distress - Head Exam Head Exam: ATRAUMATIC, NORMOCEPHALIC - Eye Exam Eye Exam: EOMI, Normal appearance, PERRL - ENT Exam ENT Exam: Mucous Membranes Moist - Neck Exam Neck exam: Positive for: Normal Inspection - Respiratory Exam Respiratory Exam: Clear to Auscultation Bilateral, NORMAL BREATHING PATTERN. absent: Accessory Muscle Use, Rales, Rhonchi, Wheezes, Respiratory Distress - Cardiovascular Exam Cardiovascular Exam: REGULAR RHYTHM, +S1, +S2. absent: Tachycardia, Systolic Murmur - GI/Abdominal Exam GI & Abdominal Exam: Normal Bowel Sounds, Soft. absent: Distended, Firm, Guarding, Rebound, Tenderness - Extremities Exam Extremities exam: Positive for: normal inspection - Neurological Exam Neurological exam: Alert, CN II-XII Intact, Oriented x3, Reflexes Normal Additional comments: Muscle strength +5/5 bilaterally - Psychiatric Exam Psychiatric exam: Normal Affect, Normal Mood - Skin Skin Exam: Dry, Intact, Normal Color, Warm Discharge Plan - Discharge Medications Prescriptions: levETIRAcetam [Keppra] 500 mg PO BID 30 Days #60 tab - Follow Up Plan Condition: STABLE Disposition: HOME/ ROUTINE Patient education suggested?: Yes Instructions: Seizures, Adult (DC), Levetiracetam Additional Instructions: Follow up with your primary medical doctor within one week Call your insurance to find available physicians within your network Also follow up with your neurologist Dr. Almanza in one month Take your Keppra 500 mg twice a day as prescribed Do not drive for three weeks Return to ED if symptoms return Angela un seguimiento con zarate mdico de cabecera dentro de maira semana Llame a zarate seguro para encontrar mdicos disponibles dentro de zarate red Tambin angela un seguimiento con zarate neurlogo Dr. Almanza en un mes. [place] zarate Keppra 500 mg dos veces al da segn lo prescrito No conduzca joby jonas semanas. Regrese a la ED si los sntomas regresan. Referrals: Mango Bass MD [Staff Provider] - Adis Crockett Jr., MD [Medical Doctor] - Heena Almanza MD [Staff Provider] -
== END 2018-11-21 18:06 | disposition home or self-care (01) | DRG 101 ==
LOC: C.ER 04:53 → C.6T 08:01 → C.5S 14:06
PROVIDERS: ADMIT Internal Medicine; ATTEND Internal Medicine
DX: G40.209 Localization-related (focal) (partial) symptomatic epilepsy and epileptic syndromes with complex partial seizures, not intractable, without status epilepticus (principal); E66.9 Obesity, unspecified